=== PATIENT | female | born 1960 | race Caucasian/White ===

== ENCOUNTER → 2016-08-22 | Outpatient (CLI) | payer BC, OTHER | LOC: MW.CHOBGYN 14:05 | PROVIDERS: ATTEND Nurse Practitioner Women's Health | DX: R42 Dizziness and giddiness (principal) | CPT/HCPCS: 81001 ==

== ENCOUNTER 2024-03-08 08:08 | Day surgery (SDC) | payer OTHER ==
[2024-03-08] MEDS: Lactated Ringers 1,000 ML IV SCH (08:35)
[2024-03-08] MEDS ORDERED: propofoL 50 ML ONE (09:15)
[2024-03-08] MEDS ORDERED: Lactated Ringers 1,000 ML IV SCH (10:15)
[2024-03-08 12:43] VITALS: BP 104/71; PULSE 69
== END 2024-03-08 11:05 | disposition home or self-care (01) ==
LOC: MW.SDS 08:08
PROVIDERS: ATTEND Surgery
DX: Z12.11 Encounter for screening for malignant neoplasm of colon (principal); Z80.0 Family history of malignant neoplasm of digestive organs; E03.9 Hypothyroidism, unspecified; G47.33 Obstructive sleep apnea (adult) (pediatric); Z79.890 Hormone replacement therapy; Z79.899 Other long term (current) drug therapy
CPT/HCPCS: 45378; J2704; J7120